=== PATIENT | female | born 2005 | race African-American/Black ===

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

== ENCOUNTER 2023-09-29 16:48 | Emergency (ER) | payer OTHER ==
[2023-09-29 16:54] VITALS: BP 137/69; PULSE 87; RESP 20; TEMP 98; BMI 29.8
== END 2023-09-29 17:43 | disposition home or self-care (01) ==
LOC: JERFT 16:48
DX: R21 Rash and other nonspecific skin eruption (principal)
CPT/HCPCS: 99283-25